=== PATIENT | male | born 1965 | race African-American/Black ===

== ENCOUNTER 2017-05-16 01:25 | Emergency (ER) | payer MEDICARE ==
[~2017-05-16] VITALS: Ht 182.9 cm; Wt 92.0 kg
[2017-05-16] MEDS ORDERED: HYDR25TA PO (01:49)
[2017-05-16] MEDS ORDERED: GEMF600T3 PO (01:49)
[2017-05-16] MEDS ORDERED: CLON0.3T PO (01:49)
[2017-05-16 02:54] VITALS: BP 168/107
[2017-05-16] MEDS ORDERED: DIPHENHYDRAMINE 25MG CAPSULE PO ONE (03:30)
[2017-05-16] MEDS ORDERED: METHYLPREDNISOLONE SOD SUCC 125 MG/2 ML VIAL IM ONE (03:30)
== END 2017-05-16 04:25 | disposition home or self-care (01) ==
LOC: ER 01:25
DX: S80.862A Insect bite (nonvenomous), left lower leg, initial encounter (principal); S80.861A Insect bite (nonvenomous), right lower leg, initial encounter; S40.862A Insect bite (nonvenomous) of left upper arm, initial encounter; S40.861A Insect bite (nonvenomous) of right upper arm, initial encounter; E78.00 Pure hypercholesterolemia, unspecified; I10 Essential (primary) hypertension; W57.XXXA Bitten or stung by nonvenomous insect and other nonvenomous arthropods, initial encounter; Y93.89 Activity, other specified; Y92.89 Other specified places as the place of occurrence of the external cause
CPT/HCPCS: 96372; 99283; J2930; Q0163

== ENCOUNTER 2024-12-14 16:49 | Emergency (ER) | payer OTHER, MEDICAID ==
[~2024-12-14] VITALS: Ht 182.9 cm; Wt 95.0 kg
[~2024-12-14 16:49] MED LIST: CLON0.3T PO; GEMF600T90 PO; HYDR25TA PO
[2024-12-14 17:02] VITALS: O2SAT 99
[2024-12-14 17:25] LABS: BASOPHILS % 0.2 % (0.0-2.0); EOSINOPHILS % 0.8 % (0.0-5.0); HEMOGLOBIN. 13.8 g/dL (14.0-18.0); LYMPHOCYTES % 14.2 % (20.0-50.0); MEAN CORPUSCULAR HEMOGLOBIN 30.4 pg (28.0-32.0); MEAN CORPUSCULAR HGB CONC 33.7 g/dL (31.0-37.0); MEAN CORPUSCULAR VOLUME 90.1 fL (80.0-94.0); MEAN PLATELET VOLUME 9.3 fl (7.4-10.4); NEUTROPHILS % 74.8 % (40.0-76.0); PLATELET 188 x1000/uL (130-400); RED BLOOD CELL COUNT 4.55 mill/uL (4.7-6.1); RED CELL DISTRIBUTION WIDTH 13.1 % (11.6-14.6); WHITE BLOOD COUNT 9.6 x1000/uL (4.5-11.0)
[2024-12-14] MEDS ORDERED: CLONIDINE 0.2MG TABLET PO ONE (17:30)
[2024-12-14] MEDS ORDERED: NITROGLYCERIN 0.4MG TABLET SL SL PRN (17:30)
[2024-12-14 18:29] LABS: CHLORIDE 103 mEq/L (98-107); POTASSIUM 3.7 mEq/L (3.5-5.1); SODIUM 138 mEq/L (136-145)
[2024-12-14 18:31] LABS: CALCIUM 9.3 mg/dL (8.7-10.4); CARBON DIOXIDE 24 mEq/L (21-32)
[2024-12-14 18:36] LABS: GLUCOSE 174 mg/dL (70-105); TROPONIN I HIGH SENSITIVITY 7 ng/L (3.0-53); UREA NITROGEN BLOOD 8 mg/dL (9-23)
[2024-12-14] MEDS: HYDROCODONE/ACETAMINOPHEN 5/325MG TABLET PO STA (18:48)
[2024-12-14] MEDS: CLONIDINE 0.1MG TABLET PO NR (18:49)
[2024-12-14] MEDS: ASPIRIN 325MG EC TABLET PO NR (18:49)
[2024-12-14 19:04] LABS: *AMPHETAMINES SCREEN URINE NEGATIVE (NEGATIVE); *BARBITURATES SCREEN URINE NEGATIVE (NEGATIVE); *BENZODIAZEPINES SCREEN URINE NEGATIVE (NEGATIVE); *COCAINE SCREEN URINE NEGATIVE (NEGATIVE); CANNABINOID URINE SCREEN NEGATIVE (NEGATIVE); METHADONE URINE SCREEN NEGATIVE (NEGATIVE); OPIATES URINE SCREEN NEGATIVE (NEGATIVE); PHENCYCLIDINE URINE SCREEN NEGATIVE (NEGATIVE)
[2024-12-14 19:05] LABS: ECSTASY MDMA SCREEN URINE NEGATIVE (NEGATIVE)
[2024-12-14 20:45] LABS: TROPONIN I HIGH SENSITIVITY 8 ng/L (3.0-53)
[2024-12-14] MEDS ORDERED: ESMOLOL 2500MG PREMIX 250 ML IV NR (21:30)
[2024-12-14] MEDS: ESMOLOL 2500MG PREMIX 250 ML IV NR (21:36)
[2024-12-14] MEDS: LABETALOL 5MG/ML 4ML INJ IV NR (21:37)
[2024-12-14 23:44] VITALS: BP 160/99; PULSE 87; RESP 18; TEMP 36.8; O2SAT 98
[2024-12-15] MEDS ORDERED: IOHEXOL-350 100 ML BOTTLE ONE (01:24)
== END 2024-12-14 23:00 | disposition short-term general hospital (02) ==
LOC: ER 16:49
DX: I71.00 Dissection of unspecified site of aorta (principal); E78.00 Pure hypercholesterolemia, unspecified; I10 Essential (primary) hypertension; Z98.890 Other specified postprocedural states
CPT/HCPCS: 80305; 80048; 80320; 85025; 85379; 84484; 36415; 71045; 71275; 93005; 96365; 96375; 99291; Q9967; J3490 ×2; Z7610; G0480